=== PATIENT | female | born 1995 | race Caucasian/White ===

== ENCOUNTER 2019-04-07 09:08 | Emergency (ER) | payer BC ==
[2019-04-07] MEDS: Ondansetron 4 MG Tab.DIS PO ONE (09:49)
[2019-04-07] MEDS: traMADol 50 MG Tab PO ONE (09:49)
[2019-04-07] MEDS ORDERED: Acetaminophen/oxyCODONE 325-5 MG Tab PO PRN (10:22)
[2019-04-07] MEDS: Promethazine 25 MG/ML SDV IM ONE (11:13)
--- NOTE | 2019-04-07 12:19 | EDM.PDOC ---
ED HPI GENERAL MEDICAL PROBLEM - General Chief Complaint: Genitourinary Problem Stated Complaint: R SIDE PAIN Time Seen by Provider: 04/07/19 09:15 Source of Information: Reports: Patient - History of Present Illness INITIAL COMMENTS - FREE TEXT/NARRATIVE: Patient is a 24 yo WF who presented to the ED because of Rt sided abdominal pain especially on the rt adnexal area. The pain is sharp 8/10,denies any nausea or vomiting. No dysuria/urgency/frequency. There is no fever or chills. right lower abdomen Pain Score (Numeric/FACES): 8 - Related Data Allergies Allergy/AdvReac Type Severity Reaction Status Date / Time amoxicillin [From Augmentin] Allergy Itching Verified 04/07/19 09:29 clavulanic acid Allergy Itching Verified 04/07/19 09:29 [From Augmentin] vancomycin Allergy Itching Verified 04/07/19 09:29 Home Meds: Home Meds LORazepam [Ativan] 1 mg PO BID PRN 04/07/19 [History] rOPINIRole [Requip] 0.5 mg PO BID 04/07/19 [History] traMADol [Ultram] 100 mg PO Q8H PRN #15 tab 04/07/19 [Rx] traZODone HCl [Trazodone HCl] 50 mg PO BEDTIME 04/07/19 [History] Past Medical History Genitourinary History: Reports: Pyelonephritis, Renal Calculus, Renal Disease, UTI, Recurrent - Past Surgical History Female Surgical History: Reports: Nephrectomy, Ureteral Stent Social & Family History - Tobacco Use Smoking Status *Q: Never Smoker - Recreational Drug Use Recreational Drug Use: No ED ROS GENERAL - Review of Systems Review Of Systems: See Below Constitutional: Reports: No Symptoms HEENT: Reports: No Symptoms Respiratory: Reports: No Symptoms Cardiovascular: Reports: No Symptoms Endocrine: Reports: No Symptoms GI/Abdominal: Reports: No Symptoms : Reports: No Symptoms Musculoskeletal: Reports: No Symptoms Skin: Reports: No Symptoms Neurological: Reports: No Symptoms Psychiatric: Reports: No Symptoms Hematologic/Lymphatic: Reports: No Symptoms Immunologic: Reports: No Symptoms ED EXAM, GI/ABD - Physical Exam Exam: See Below Exam Limited By: No Limitations General Appearance: Alert, WD/WN, No Apparent Distress Ears: Normal External Exam, Normal Canal, Hearing Grossly Normal Nose: Normal Inspection, Normal Mucosa Throat/Mouth: Normal Inspection, Normal Lips Head: Atraumatic, Normocephalic Neck: Normal Inspection, Supple, Non-Tender Respiratory/Chest: No Respiratory Distress, Lungs Clear, Normal Breath Sounds, No Accessory Muscle Use, Chest Non-Tender Cardiovascular: Normal Peripheral Pulses, Regular Rate, Rhythm, No Edema, No Gallop, No Rub, Diastolic Murmur GI/Abdominal Exam: Normal Bowel Sounds, Soft, Other (tenderness rt adnexal area) (Female) Exam: Deferred Course - Vital Signs Text/Narrative:: labs and CT scan reviewed with patients zofran 4 mg ODT Phenergan 25 mg IM Tramadol 100 mg po x1 Her nausea and pain are gone upon discharge Last Recorded V/S: Last Vital Signs Temp 37.1 C 04/07/19 09:10 Pulse 76 04/07/19 11:00 Resp 18 04/07/19 11:00 BP 113/65 04/07/19 11:00 Pulse Ox 100 04/07/19 11:00 - Orders/Labs/Meds Orders: Active Orders 24 hr Category Date Time Status Abdomen Pelvis wo Cont [CT] Stat Exams 04/07/19 10:54 Taken Acetaminophen/oxyCODONE [Percocet 325-5 MG] Med 04/07/19 10:22 Active 2 tab PO ONETIME PRN Medication Orders Oxycodone/Acetaminophen (Percocet 325-5 Mg) 2 tab PO ONETIME PRN PRN Reason: Pain Labs: Laboratory Tests 04/07/19 04/07/19 04/07/19 Range/Units 09:22 09:40 09:40 WBC 7.5 (4.5-12.0) X10-3/uL RBC 3.88 (3.23-5.20) x10(6)uL Hgb 10.8 L (11.5-15.5) g/dL Hct 31.9 (30.0-51.3) % MCV 82.3 (80-96) fL MCH 27.9 (27.7-33.6) pg MCHC 33.9 (32.2-35.4) g/dL RDW 13.9 (11.5-15.5) % Plt Count 229 (125-369) X10(3)uL MPV 7.8 (7.4-10.4) fL Neut % (Auto) 67.4 (46-82) % Lymph % (Auto) 23.7 (13-37) % [place] % (Auto) 6.4 (4-12) % Eos % (Auto) 2 (1.0-5.0) % Baso % (Auto) 0 (0-2) % Neut # (Auto) 5.0 (1.6-8.3) # Lymph # (Auto) 1.8 (0.6-5.0) # [place] # (Auto) 0.5 (0.0-1.3) # Eos # (Auto) 0.2 (0.0-0.8) # Baso # (Auto) 0.0 (0.0-0.2) # Sodium 141 (135-145) mmol/L Potassium 4.4 (3.5-5.3) mmol/L Chloride 105 (100-110) mmol/L Carbon Dioxide 29 (21-32) mmol/L BUN 13 (7-18) mg/dL Creatinine 1.2 H (0.55-1.02) mg/dL Est Cr Clr Drug Dosing TNP Estimated GFR (MDRD) 54 L (>60) BUN/Creatinine Ratio 10.8 (9-20) Glucose 94 (80-116) mg/dL Calcium 8.9 (8.6-10.2) mg/dL Urine Color Yellow (YELLOW) Urine Appearance Slightly cloudy (CLEAR) Urine pH 6.0 (5.0-6.5) Ur Specific [place] 1.020 (1.010-1.025) Urine Protein Negative (NEGATIVE) mg/dL Urine Glucose (UA) Normal (NORMAL) mg/dL Urine Ketones Negative (NEGATIVE) mg/dL Urine Occult Blood Negative (NEGATIVE) Urine Nitrite Negative (NEGATIVE) Urine Bilirubin Negative (NEGATIVE) Urine Urobilinogen Normal (NEGATIVE) mg/dL Ur Leukocyte Esterase Negative (NEGATIVE) Urine RBC 0-5 (0-5) Urine WBC 0-5 (0-5) Ur Squamous Epith Cells Moderate H (NS,R,O) Urine Bacteria Few H (NS) Urine Mucus Few H (NS) Meds: Medications Generic Name Dose Route Start Last Admin Trade Name Freq PRN Reason Stop Dose Admin Oxycodone/Acetaminophen 2 tab 04/07/19 10:22 Percocet 325-5 Mg PO ONETIME PRN Pain Discontinued Medications Generic Name Dose Route Start Last Admin Trade Name Macarioq PRN Reason Stop Dose Admin Ondansetron HCl 4 mg 04/07/19 09:30 04/07/19 09:49 Zofran Odt PO 04/07/19 09:31 4 mg ONETIME ONE Administration Promethazine HCl 25 mg 04/07/19 10:23 04/07/19 11:13 Phenergan IM 04/07/19 10:24 25 mg ONETIME ONE Administration Tramadol HCl 100 mg 04/07/19 09:30 04/07/19 09:49 Ultram PO 04/07/19 09:31 100 mg ONETIME ONE Administration Departure - Departure Time of Disposition: 12:20 Disposition: Home, Self-Care 01 Condition: Good Clinical Impression: Vy - Discharge Information Prescriptions: traMADol [Ultram] 100 mg PO Q8H PRN #15 tab PRN Reason: Pain Instructions: Abdominal Pain, Adult, Vy, [id number] Referrals: PCP,Not In Area [Primary Care Provider] - Forms: ED Department Discharge Additional Instructions: Please read discharge instructions on ovulation pain Take tramadol 100 mg with tylenol 1000 mg every 8 hours as needed for pain Follow up if symptoms persist - My Orders Last 24 Hours: My Active Orders 04/07/19 10:22 Acetaminophen/oxyCODONE [Percocet 325-5 MG] 2 tab PO ONETIME PRN 04/07/19 10:54 Abdomen Pelvis wo Cont [CT] Stat - Assessment/Plan Last 24 Hours: My Active Orders 04/07/19 10:22 Acetaminophen/oxyCODONE [Percocet 325-5 MG] 2 tab PO ONETIME PRN 04/07/19 10:54 Abdomen Pelvis wo Cont [CT] Stat
== END 2019-04-07 12:15 | disposition home or self-care (01) ==
LOC: FB.ED 09:08
DX: N94.0 Mittelschmerz (principal); Z88.1 Allergy status to other antibiotic agents
CPT/HCPCS: 36415; 74176; 80048; 81001; 85025; 96372; 99284; A9270; J2550